=== PATIENT | female | born 1940 | race Caucasian/White ===

== ENCOUNTER 2020-04-08 11:51 | Emergency (ER) | payer MEDICARE, OTHER, SELFPAY ==
[2020-04-08] VITALS (33 sets, daily range): BP systolic 130–177; BP diastolic 59–91; PULSE 62–94; RESP 14–40; TEMP 36.6–36.8; O2SAT 94–99; BMI 38.5
[2020-04-08 12:47] LABS: Add Manual Diff / Slide Review NO; Basophils Absolute Auto 100 /uL (0-100); Basophils Percent Auto 1.6 % (0-2); Eosinophils Absolute Auto 200 /uL (0-450); Eosinophils Percent Auto 4.4 % (2-4); Hematocrit 24.3 % (36-46); Hemoglobin 7.5 g/dL (12.0-16.0); Lymphocytes Absolute Auto 1000 /uL (1100-4500); Lymphocytes Percent Auto 19.2 % (25-40); Mean Corpuscular HGB Conc 30.6 % (30-36); Mean Corpuscular Hemoglobin 22.8 PG (26-34); Mean Corpuscular Volume 74.5 fL (80-100); Monocytes Absolute Auto 400 /uL (0-900); Monocytes Percent Auto 8.2 % (3-14); Neutrophils Absolute Auto 3400 /uL (1500-7000); Neutrophils Percent Auto 66.6 % (50-75); Platelet Count 248 X10^3/uL (150-400); Red Blood Cell Count 3.27 X10^6/uL (4.0-5.2); Red Cell Distribution Width 22.9 % (11.6-14.8); White Blood Cell Count 5.1 X10^3/uL (4.5-11.0)
[2020-04-08 12:59] LABS: Alanine Aminotransferase 23 IU/L (<35); Albumin 4.2 g/dL (3.5-5.0); Albumin Globulin Ratio 1.3 (1.0-2.8); Alkaline Phosphatase 61 U/L (38-126); Aspartate Aminotransferase 27 IU/L (14-36); BUN Creatinine Ratio 17.3 (6-22); Bilirubin Total 0.3 mg/dL (0.2-1.3); Blood Urea Nitrogen 14 mg/dL (7-17); Calcium 9.2 mg/dL (8.4-10.2); Carbon Dioxide 28 mmol/L (22-32); Chloride 107 mmol/L (98-107); Estimated Glomerular Filt Rate > 60.0 mL/min (>60); Globulin 3.2 g/dL (1.7-4.1); Glucose 110 mg/dL (80-110); HEMOLYSIS < 15 (0-50); Potassium 4.3 mmol/L (3.4-5.1); Sodium 141 mmol/L (137-145); Total Protein 7.4 g/dL (6.3-8.2)
[2020-04-08 13:47] LABS: Anisocytosis 2+; Hypochromasia 2+; Poikilocytosis 2+; Polychromasia 1+
[2020-04-08] MEDS: FUROSEMIDE 40 MG/4 ML VIAL 20 MG IV (16:10)
[2020-04-08 19:15] LABS: Hematocrit 31.9 % (36-46); Hemoglobin 9.9 g/dL (12.0-16.0)
--- NOTE | 2020-04-08 19:53 | ED_ITS ---
HPI - Recheck/Abnormal Lab/Rx <BRISA Arias-BC - Last Filed: 04/08/20 19:57> General Chief Complaint: Recheck/Abnormal Lab/Rx Stated Complaint: states she needs a transfusion, dizziness Time Seen by Provider: 04/08/20 12:31 Source: patient Mode of arrival: Ambulatory Limitations: no limitations History of Present Illness HPI narrative: The patient is a 79-year-old female nonsmoker with history of abdominal surgery and GI bleed who presents with a chief complaint of needing a transfusion. She states that she was sent over for transfusion from her primary care provider in Saturday. She states that she has a known GI slow leak, for which she occasionally receives transfusions and iron infusions. She states that she has been feeling overall weak and a little bit dizzy so she had her lab work checked and found that her hemoglobin was 7. Her primary care provider tried to arrange an outpatient blood transfusion in the infusion center, but she found that it was closed today. The she presents to the emergency department requesting a blood transfusion. She states she does not need any further evaluation or to find out why she needs a transfusion, she would just like a blood transfusion and to go home. No noted blood in stools, no pain at this time, no chest pain or shortness of breath. She does feel little dizzy when she stands up too quickly at this point. Related Data Allergies Allergy/AdvReac Type Severity Reaction Status Date / Time No Known Drug Allergies Allergy Verified 04/08/20 11:59 Exam <DELIO Arias - Last Filed: 04/08/20 19:57> Narrative Exam Narrative: GENERAL: This is a well-nourished, well-developed patient, no acute distress HEAD: Atraumatic. Normocephalic. No temporal or scalp tenderness. EYES: Pupils equal round and reactive. Extraocular motions intact. No scleral icterus. No injection or drainage. ENT: Nose without bleeding, purulent drainage or septal hematoma. Throat without erythema, tonsillar hypertrophy or exudate. Uvula midline. Airway patent. NECK: Trachea midline. No JVD or lymphadenopathy. Supple, nontender, no meningeal signs. CARDIOVASCULAR: Regular rate and rhythm RESPIRATORY: Clear to auscultation. Breath sounds equal bilaterally. No wheezes, rales, or rhonchi. No cough. No increased respiratory effort. No accessory muscle use. GASTROINTESTINAL: Abdomen soft, non-tender, nondistended. No hepato- splenomegaly, or palpable masses. No guarding. EXTREMITIES: No clubbing, cyanosis, or edema. No joint tenderness, effusion, or edema noted. BACK: Nontender without deformity or crepitance. No flank tenderness. NEURO: AOx3. SKIN: No rash or erythema. Slightly pale, pale conjunctiva noted Initial Vital Signs Initial Vital Signs: Vital Signs Pulse Rate 76 04/08/20 11:59 Respiratory Rate 14 04/08/20 11:59 Blood Pressure 159/64 H 04/08/20 11:59 Pulse Oximetry 96 04/08/20 11:59 <Amanda Lerner MD - Last Filed: 04/13/20 07:45> Initial Vital Signs Initial Vital Signs: Vital Signs Pulse Rate 76 04/08/20 11:59 Respiratory Rate 14 04/08/20 11:59 Blood Pressure 159/64 H 04/08/20 11:59 Pulse Oximetry 96 04/08/20 11:59 Scores <DELIO Arias - Last Filed: 04/08/20 19:57> GCS [place] coma scale eye opening: Spontaneous [place] coma scale verbal response: Orientated [place] coma scale motor response: Obey commands Maynor coma scale total score: 15 Course <DELIO Arias - Last Filed: 04/08/20 19:57> Orders Ordered: Discontinued Medications Furosemide (Lasix) 20 mg IV NOW ONE Stop: 04/08/20 13:31 Last Admin: 04/08/20 16:10 Dose: 20 mg Documented by: JERRY Vital Signs Vital signs: Vital Signs - 8 hr 04/08/20 11:59 04/08/20 13:00 04/08/20 13:01 Temperature Pulse Rate 76 63 65 Respiratory Rate 14 18 18 Blood Pressure 159/64 H 147/63 H Pulse Oximetry 96 94 95 04/08/20 13:30 04/08/20 13:31 04/08/20 14:00 Temperature Pulse Rate 70 68 67 Respiratory Rate 23 24 26 H Blood Pressure 141/61 H Pulse Oximetry 97 97 98 04/08/20 14:01 04/08/20 14:03 04/08/20 14:04 Temperature 98.0 F Pulse Rate 67 67 67 Respiratory Rate 20 19 21 Blood Pressure 139/59 L 156/69 H 156/69 H Pulse Oximetry 98 97 04/08/20 14:16 04/08/20 14:20 04/08/20 14:30 Temperature 98.0 F Pulse Rate 66 62 67 Respiratory Rate 25 H 14 21 Blood Pressure 142/65 H 142/65 H Pulse Oximetry 98 97 04/08/20 14:31 04/08/20 15:00 04/08/20 15:02 Temperature Pulse Rate 67 93 H 71 Respiratory Rate 17 16 18 Blood Pressure 150/68 H 177/77 H Pulse Oximetry 97 97 99 04/08/20 15:14 04/08/20 15:30 04/08/20 15:31 Temperature 98.2 F Pulse Rate 70 79 79 Respiratory Rate 18 14 19 Blood Pressure 177/77 H 164/89 H Pulse Oximetry 96 96 04/08/20 16:00 04/08/20 16:01 04/08/20 16:05 Temperature 98.2 F Pulse Rate 84 83 82 Respiratory Rate 17 23 18 Blood Pressure 145/65 H 145/65 H Pulse Oximetry 95 96 04/08/20 16:23 04/08/20 16:30 04/08/20 16:39 Temperature 98.1 F 98.1 F Pulse Rate 82 94 H 78 Respiratory Rate 20 40 H 20 Blood Pressure 145/65 H 145/91 H Pulse Oximetry 04/08/20 17:00 04/08/20 17:12 04/08/20 17:30 Temperature Pulse Rate 76 86 79 Respiratory Rate 22 29 H 20 Blood Pressure 145/91 H Pulse Oximetry 98 98 97 04/08/20 17:31 04/08/20 18:33 04/08/20 18:34 Temperature Pulse Rate 86 81 Respiratory Rate 35 H Blood Pressure 130/64 Pulse Oximetry 97 95 04/08/20 18:35 04/08/20 18:50 Temperature 98.0 F 97.8 F Pulse Rate 77 83 Respiratory Rate 18 24 Blood Pressure 130/64 140/63 Pulse Oximetry <Amanda Lerner MD - Last Filed: 04/13/20 07:45> Orders Ordered: Discontinued Medications Furosemide (Lasix) 20 mg IV NOW ONE Stop: 04/08/20 13:31 Last Admin: 04/08/20 16:10 Dose: 20 mg Documented by: JERRY Vital Signs Vital signs: Vital Signs - 8 hr 04/08/20 11:59 04/08/20 13:00 04/08/20 13:01 Temperature Pulse Rate 76 63 65 Respiratory Rate 14 18 18 Blood Pressure 159/64 H 147/63 H Pulse Oximetry 96 94 95 04/08/20 13:30 04/08/20 13:31 04/08/20 14:00 Temperature Pulse Rate 70 68 67 Respiratory Rate 23 24 26 H Blood Pressure 141/61 H Pulse Oximetry 97 97 98 04/08/20 14:01 04/08/20 14:03 04/08/20 14:04 Temperature 98.0 F Pulse Rate 67 67 67 Respiratory Rate 20 19 21 Blood Pressure 139/59 L 156/69 H 156/69 H Pulse Oximetry 98 97 04/08/20 14:16 04/08/20 14:20 04/08/20 14:30 Temperature 98.0 F Pulse Rate 66 62 67 Respiratory Rate 25 H 14 21 Blood Pressure 142/65 H 142/65 H Pulse Oximetry 98 97 04/08/20 14:31 04/08/20 15:00 04/08/20 15:02 Temperature Pulse Rate 67 93 H 71 Respiratory Rate 17 16 18 Blood Pressure 150/68 H 177/77 H Pulse Oximetry 97 97 99 04/08/20 15:14 04/08/20 15:30 04/08/20 15:31 Temperature 98.2 F Pulse Rate 70 79 79 Respiratory Rate 18 14 19 Blood Pressure 177/77 H 164/89 H Pulse Oximetry 96 96 04/08/20 16:00 04/08/20 16:01 04/08/20 16:05 Temperature 98.2 F Pulse Rate 84 83 82 Respiratory Rate 17 23 18 Blood Pressure 145/65 H 145/65 H Pulse Oximetry 95 96 04/08/20 16:23 04/08/20 16:30 04/08/20 16:39 Temperature 98.1 F 98.1 F Pulse Rate 82 94 H 78 Respiratory Rate 20 40 H 20 Blood Pressure 145/65 H 145/91 H Pulse Oximetry 04/08/20 17:00 04/08/20 17:12 04/08/20 17:30 Temperature Pulse Rate 76 86 79 Respiratory Rate 22 29 H 20 Blood Pressure 145/91 H Pulse Oximetry 98 98 97 04/08/20 17:31 04/08/20 18:33 04/08/20 18:34 Temperature Pulse Rate 86 81 Respiratory Rate 35 H Blood Pressure 130/64 Pulse Oximetry 97 95 04/08/20 18:35 04/08/20 18:50 Temperature 98.0 F 97.8 F Pulse Rate 77 83 Respiratory Rate 18 24 Blood Pressure 130/64 140/63 Pulse Oximetry MDM - Recheck/Abnormal Lab/Rx <BRISA Arias- - Last Filed: 04/08/20 19:57> Lab Data Attestation: I reviewed the patient's lab results. Result diagrams: 04/08/20 17:10 04/08/20 12:30 Labs: Lab Results 04/08/20 04/08/20 04/08/20 Range/Units 12:30 12:30 12:30 WBC 5.1 (4.5-11.0) X10^3/uL RBC 3.27 L (4.0-5.2) X10^6/uL Hgb 7.5 L (12.0-16.0) g/dL Hct 24.3 L (36-46) % MCV 74.5 L (80-100) fL MCH 22.8 L (26-34) PG MCHC 30.6 (30-36) % RDW 22.9 H (11.6-14.8) % Plt Count 248 (150-400) X10^3/uL Neut % (Auto) 66.6 (50-75) % Lymph % (Auto) 19.2 L (25-40) % [place] % (Auto) 8.2 (3-14) % Eos % (Auto) 4.4 H (2-4) % Baso % (Auto) 1.6 (0-2) % Neut # (Auto) 3400 (5666-0402) /uL Lymph # (Auto) 1000 L (0820-5658) /uL [place] # (Auto) 400 (0-900) /uL Eos # (Auto) 200 (0-450) /uL Baso # (Auto) 100 (0-100) /uL RBC Morphology Not Reportable Polychromasia 1+ H Hypochromasia 2+ H Poikilocytosis 2+ H Anisocytosis 2+ H Sodium 141 (137-145) mmol/L Potassium 4.3 (3.4-5.1) mmol/L Chloride 107 (98-107) mmol/L Carbon Dioxide 28 (22-32) mmol/L BUN 14 (7-17) mg/dL Creatinine 0.81 (0.52-1.04) mg/dL Estimated GFR > 60.0 (>60) mL/min BUN/Creatinine Ratio 17.3 (6-22) Glucose 110 (80-110) mg/dL Calcium 9.2 (8.4-10.2) mg/dL Total Bilirubin 0.3 (0.2-1.3) mg/dL AST 27 (14-36) IU/L ALT 23 (<35) IU/L Alkaline Phosphatase 61 (38-126) U/L Total Protein 7.4 (6.3-8.2) g/dL Albumin 4.2 (3.5-5.0) g/dL Globulin 3.2 (1.7-4.1) g/dL Albumin/Globulin Ratio 1.3 (1.0-2.8) Blood Type A Positive Antibody Screen Negative Crossmatch See Detail 04/08/20 Range/Units 17:10 WBC (4.5-11.0) X10^3/uL RBC (4.0-5.2) X10^6/uL Hgb 9.9 L (12.0-16.0) g/dL Hct 31.9 L (36-46) % MCV (80-100) fL MCH (26-34) PG MCHC (30-36) % RDW (11.6-14.8) % Plt Count (150-400) X10^3/uL Neut % (Auto) (50-75) % Lymph % (Auto) (25-40) % [place] % (Auto) (3-14) % Eos % (Auto) (2-4) % Baso % (Auto) (0-2) % Neut # (Auto) (8068-5255) /uL Lymph # (Auto) (0849-7652) /uL [place] # (Auto) (0-900) /uL Eos # (Auto) (0-450) /uL Baso # (Auto) (0-100) /uL RBC Morphology Polychromasia Hypochromasia Poikilocytosis Anisocytosis Sodium (137-145) mmol/L Potassium (3.4-5.1) mmol/L Chloride (98-107) mmol/L Carbon Dioxide (22-32) mmol/L BUN (7-17) mg/dL Creatinine (0.52-1.04) mg/dL Estimated GFR (>60) mL/min BUN/Creatinine Ratio (6-22) Glucose (80-110) mg/dL Calcium (8.4-10.2) mg/dL Total Bilirubin (0.2-1.3) mg/dL AST (14-36) IU/L ALT (<35) IU/L Alkaline Phosphatase (38-126) U/L Total Protein (6.3-8.2) g/dL Albumin (3.5-5.0) g/dL Globulin (1.7-4.1) g/dL Albumin/Globulin Ratio (1.0-2.8) Blood Type Antibody Screen Crossmatch MDM Narrative Medical decision making narrative: The patient is a 79-year-old female who presents requesting a blood transfusion as she was unable to get her outpatient 1 today. Her initial hemoglobin was 7.5, we did give her 2 units and her hemoglobin increased to 9.9. She tolerated her blood transfusions well, and feels much improved afterwards. I did discussed the patient with Dr. Lerner, and we discussed transfusing her in discharging her without any into this [facility]ernstein as the patient heard a chronic anemia for which she gets occasional transfusions and iron infusions. The patient repeatedly declines any further evaluation or workup. She expresses great appreciation. Patient has no questions or concerns upon discharge and states understanding return precautions as well as follow-up care. I encouraged follow-up with primary care provider as well as other providers. No questions or concerns upon discharge has been hemodynamically stable throughout her stay in the emergency department. The patient has been hemodynamically stable throughout her stay in the emergency department. <Amanda Lerner MD - Last Filed: 04/13/20 07:45> Lab Data Labs: Lab Results 04/08/20 04/08/20 04/08/20 Range/Units 12:30 12:30 12:30 WBC 5.1 (4.5-11.0) X10^3/uL RBC 3.27 L (4.0-5.2) X10^6/uL Hgb 7.5 L (12.0-16.0) g/dL Hct 24.3 L (36-46) % MCV 74.5 L (80-100) fL MCH 22.8 L (26-34) PG MCHC 30.6 (30-36) % RDW 22.9 H (11.6-14.8) % Plt Count 248 (150-400) X10^3/uL Neut % (Auto) 66.6 (50-75) % Lymph % (Auto) 19.2 L (25-40) % [place] % (Auto) 8.2 (3-14) % Eos % (Auto) 4.4 H (2-4) % Baso % (Auto) 1.6 (0-2) % Neut # (Auto) 3400 (8735-5978) /uL Lymph # (Auto) 1000 L (9877-8516) /uL [place] # (Auto) 400 (0-900) /uL Eos # (Auto) 200 (0-450) /uL Baso # (Auto) 100 (0-100) /uL RBC Morphology Not Reportable Polychromasia 1+ H Hypochromasia 2+ H Poikilocytosis 2+ H Anisocytosis 2+ H Sodium 141 (137-145) mmol/L Potassium 4.3 (3.4-5.1) mmol/L Chloride 107 (98-107) mmol/L Carbon Dioxide 28 (22-32) mmol/L BUN 14 (7-17) mg/dL Creatinine 0.81 (0.52-1.04) mg/dL Estimated GFR > 60.0 (>60) mL/min BUN/Creatinine Ratio 17.3 (6-22) Glucose 110 (80-110) mg/dL Calcium 9.2 (8.4-10.2) mg/dL Total Bilirubin 0.3 (0.2-1.3) mg/dL AST 27 (14-36) IU/L ALT 23 (<35) IU/L Alkaline Phosphatase 61 (38-126) U/L Total Protein 7.4 (6.3-8.2) g/dL Albumin 4.2 (3.5-5.0) g/dL Globulin 3.2 (1.7-4.1) g/dL Albumin/Globulin Ratio 1.3 (1.0-2.8) Blood Type A Positive Antibody Screen Negative Crossmatch See Detail 04/08/20 Range/Units 17:10 WBC (4.5-11.0) X10^3/uL RBC (4.0-5.2) X10^6/uL Hgb 9.9 L (12.0-16.0) g/dL Hct 31.9 L (36-46) % MCV (80-100) fL MCH (26-34) PG MCHC (30-36) % RDW (11.6-14.8) % Plt Count (150-400) X10^3/uL Neut % (Auto) (50-75) % Lymph % (Auto) (25-40) % [place] % (Auto) (3-14) % Eos % (Auto) (2-4) % Baso % (Auto) (0-2) % Neut # (Auto) (6094-6470) /uL Lymph # (Auto) (6266-0972) /uL [place] # (Auto) (0-900) /uL Eos # (Auto) (0-450) /uL Baso # (Auto) (0-100) /uL RBC Morphology Polychromasia Hypochromasia Poikilocytosis Anisocytosis Sodium (137-145) mmol/L Potassium (3.4-5.1) mmol/L Chloride (98-107) mmol/L Carbon Dioxide (22-32) mmol/L BUN (7-17) mg/dL Creatinine (0.52-1.04) mg/dL Estimated GFR (>60) mL/min BUN/Creatinine Ratio (6-22) Glucose (80-110) mg/dL Calcium (8.4-10.2) mg/dL Total Bilirubin (0.2-1.3) mg/dL AST (14-36) IU/L ALT (<35) IU/L Alkaline Phosphatase (38-126) U/L Total Protein (6.3-8.2) g/dL Albumin (3.5-5.0) g/dL Globulin (1.7-4.1) g/dL Albumin/Globulin Ratio (1.0-2.8) Blood Type Antibody Screen Crossmatch Discharge Plan Departure Patient Disposition: Home Clinical Impression: Encounter for blood transfusion Discharge Date/Time: 04/08/20 20:04 Instructions: DI for Blood Transfusion Activity Restrictions/Additional Instructions: Thank you for trusting us with your care today. Today we transfused 2 units of blood. As discussed, hemoglobin increased from 7.5-9.9 with your transfusions. Per your request, we did not investigate why you are anemic. Please follow-up with primary care provider in the next few days. Please come back to the emergency department for any acute concerns. Referrals: Gwendolyn Castorena MD [Non-Staff] - <Amanda Lerner MD - Last Filed: 04/13/20 07:45> Cosign ED Attending Cosignature Attestation: I was immediately available in the department for consultation throughout this patient's visit. I agree with documentation as above. Amanda Lerner MD
== END 2020-04-08 20:04 | disposition home or self-care (01) ==
PROVIDERS: Emergency Provider Nurse Practitioner Family
DX: K92.2 Gastrointestinal hemorrhage, unspecified (principal)
CPT/HCPCS: 36415; 36430; 80053; 85014; 85018; 85025; 86850; 86900; 86901; 96374; 99284; 99285; P9016; J1940